=== PATIENT | male | born 1945 | race Hispanic/Latino ===

== ENCOUNTER 2017-12-10 14:44 | Emergency (ER) | payer MEDICARE ==
[2017-12-10 15:21] LABS: #Eosinphils 0.2 thou/uL (0.0-0.7); #Lymphocytes 1.6 thou/uL (1.20-3.40); #Monocytes 0.8 thou/uL (0.11-0.59); #Neutrophils 6.2 thou/uL (1.40-6.50); %Basophils 0.5 % (0.0-1.0); %Eosinophils 1.8 % (0.0-10.0); %Lymphocytes 18.5 % (21.0-51.0); %Neutrophils 70.2 % (42.0-75.0); Hemoglobin 12.2 g/dL (14.0-18.0); Mean Corpuscular HGB CONC 34.7 g/dL (32.0-36.0); Mean Corpuscular Hemoglobin 31.5 pg (27.0-31.0); Mean Corpuscular Volume 90.6 fl (80.0-94.0); Mean Platelet Volume 8.2 fL (7.4-10.4); Platelet Count 178 thou/uL (130-400); RBC Distribution Width 12.4 % (11.5-14.5); Red Blood Cell (RBC) Count 3.89 mill/uL (4.70-6.10); White Blood Cell (WBC) Count 8.8 thou/uL (4.8-10.8)
[2017-12-10 15:52] LABS: ALT (SGPT) 12 U/L (8-55); AST (SGOT) 12 U/L (5-34); Albumin 4.1 g/dL (3.4-4.8); Alkaline Phosphatase 61 U/L (40-150); Anion Gap 16 mmol/L (10-20); BUN (Urea Nitrogen) 40 mg/dL (8.4-25.7); Bilirubin, Total 0.5 mg/dL (0.2-1.2); CK (CPK) 142 U/L (30-200); Calc. Creatinine Clearance 0 mL/min (70-130); Calcium 9.2 mg/dL (7.8-10.44); Carbon Dioxide 19 mmol/L (23-31); Chloride 105 mmol/L (98-107); Estimated GFR-MDRD 40; Globulin 2.9 g/dL (2.4-3.5); Glucose 120 mg/dL (83-110); Lipase 52 U/L (8-78); Potassium 4.2 mmol/L (3.5-5.1); Sodium 136 mmol/L (136-145)
[2017-12-10 15:55] LABS: CKMB 2.7 ng/mL (0-6.6); Troponin I Less than 0.010 ng/mL (< 0.028)
== END 2017-12-10 16:23 | disposition home or self-care (01) ==
LOC: ERS 14:44
DX: R55 Syncope and collapse (principal); R11.2 Nausea with vomiting, unspecified; T50.905A Adverse effect of unspecified drugs, medicaments and biological substances, initial encounter; E11.9 Type 2 diabetes mellitus without complications; E78.00 Pure hypercholesterolemia, unspecified; I25.2 Old myocardial infarction; I11.0 Hypertensive heart disease with heart failure; I50.9 Heart failure, unspecified
CPT/HCPCS: 36415; 80053; 82553; 83690; 84484; 85025; 93005

== ENCOUNTER 2021-07-22 17:21 | Emergency (ER) | payer OTHER, MEDICARE ==
[2021-07-22] MEDS ORDERED: Acetaminophen 500 MG TAB ONE (18:47)
== END 2021-07-22 20:15 | disposition home or self-care (01) ==
LOC: ERS 17:21
DX: S43.014A Anterior dislocation of right humerus, initial encounter (principal); I11.0 Hypertensive heart disease with heart failure; I50.9 Heart failure, unspecified; E78.00 Pure hypercholesterolemia, unspecified; I25.2 Old myocardial infarction; W01.0XXA Fall on same level from slipping, tripping and stumbling without subsequent striking against object, initial encounter
CPT/HCPCS: 23650; 70450

== ENCOUNTER 2021-07-28 10:13 | Observation (INO) | payer MEDICARE ==
[2021-07-28] MEDS ORDERED: Iopamidol-370 76% 500 ML 1 ML ONE (10:30)
[2021-07-28 10:52] LABS: #Basophils 0.1 thou/uL (0.0-0.2); #Eosinphils 0.2 thou/uL (0.0-0.7); #Lymphocytes 1.3 thou/uL (1.20-3.40); %Basophils 0.4 % (0.0-1.0); %Eosinophils 1.1 % (0.0-10.0); %Lymphocytes 8.3 % (21.0-51.0); %Monocytes 6.1 % (0.0-10.0); %Neutrophils 84.1 % (42.0-75.0); Hemoglobin 10.8 g/dL (14.0-18.0); Mean Corpuscular HGB CONC 32.6 g/dL (32.0-36.0); Mean Corpuscular Hemoglobin 27.3 pg (27.0-31.0); Mean Corpuscular Volume 83.7 fL (78.0-98.0); Mean Platelet Volume 7.7 fL (7.4-10.4); Platelet Count 203 thou/uL (130-400); RBC Distribution Width 12.6 % (11.5-14.5); Red Blood Cell (RBC) Count 3.97 mill/uL (4.70-6.10); White Blood Cell (WBC) Count 15.5 thou/uL (4.8-10.8)
[2021-07-28 11:26] LABS: ALT (SGPT) 9 U/L (8-55); AST (SGOT) 15 U/L (5-34); Albumin 2.9 g/dL (3.4-4.8); Alkaline Phosphatase 71 U/L (40-110); Anion Gap 15 mmol/L (10-20); BUN (Urea Nitrogen) 16 mg/dL (8.4-25.7); Bilirubin, Total 0.5 mg/dL (0.2-1.2); Calc. Creatinine Clearance 0 mL/min (70-130); Calcium 11.1 mg/dL (7.8-10.44); Carbon Dioxide 29 mmol/L (23-31); Chloride 94 mmol/L (98-107); Globulin 4.1 g/dL (2.4-3.5); Glucose 113 mg/dL (83-110); Lipase 14 U/L (8-78); Magnesium 1.9 mg/dL (1.6-2.6); Potassium 3.1 mmol/L (3.5-5.1); Sodium 135 mmol/L (136-145)
[2021-07-28 11:41] LABS: CKMB 0.8 ng/mL (0-6.6)
[2021-07-28] MEDS ORDERED: Aspirin Chewable 81 MG TAB ONE (14:08)
[2021-07-28] MEDS ORDERED: Azithromycin 500 MG VIAL ONE (14:08)
[2021-07-28] MEDS ORDERED: Potassium Chloride 20 MEQ TAB ONE (14:08)
[2021-07-28] MEDS ORDERED: Ondansetron ODT 4 MG TAB PO PRN (14:50)
[2021-07-28] MEDS ORDERED: Acetaminophen 650 MG Suppository PR PRN (14:50)
[2021-07-28] MEDS ORDERED: Ondansetron PF 4 MG/2 ML Vial IVP PRN (14:50)
[2021-07-28] MEDS ORDERED: Acetaminophen 325 MG TAB PO PRN (14:50)
[2021-07-28] MEDS ORDERED: Lactated Ringer's 1,000 ML IV SCH (15:15)
[2021-07-28 16:02] LABS: Troponin I 0.033 ng/mL (< 0.028)
[2021-07-28] MEDS ORDERED: Acetaminophen/Codeine 30-300mg Tablet PO PRN (16:38)
[2021-07-28] MEDS ORDERED: cefTRIAXone\\ROCEPHIN 1 GM in Sodium Chloride 0.9% 100 ML IVPB SCH (17:00)
[2021-07-28 17:20] VITALS: BMI 30.1
[2021-07-28 17:37] LABS: SARS-CoV-2 NAA Rapid Test DETECTED (NotDetected)
[2021-07-28 19:00] LABS: Troponin I 0.039 ng/mL (< 0.028)
[2021-07-28] MEDS: Benzonatate 100 MG CAP PO PRN (23:18)
[2021-07-28] MEDS: Acetaminophen 325 MG TAB PO PRN (23:22)
[2021-07-29] MEDS: Benzonatate 100 MG CAP PO PRN (05:22)
[2021-07-29 05:48] LABS: #Eosinphils 0.3 thou/uL (0.0-0.7); #Lymphocytes 1.1 thou/uL (1.20-3.40); #Monocytes 0.8 thou/uL (0.11-0.59); #Neutrophils 9.3 thou/uL (1.40-6.50); %Basophils 0.2 % (0.0-1.0); %Eosinophils 2.7 % (0.0-10.0); %Lymphocytes 9.4 % (21.0-51.0); %Monocytes 6.7 % (0.0-10.0); %Neutrophils 81.1 % (42.0-75.0); Hemoglobin 9.5 g/dL (14.0-18.0); Mean Corpuscular HGB CONC 32.4 g/dL (32.0-36.0); Mean Corpuscular Hemoglobin 27.4 pg (27.0-31.0); Mean Corpuscular Volume 84.6 fL (78.0-98.0); Mean Platelet Volume 7.1 fL (7.4-10.4); Platelet Count 179 thou/uL (130-400); RBC Distribution Width 12.5 % (11.5-14.5); Red Blood Cell (RBC) Count 3.48 mill/uL (4.70-6.10); White Blood Cell (WBC) Count 11.4 thou/uL (4.8-10.8)
[2021-07-29 06:16] LABS: Anion Gap 11 mmol/L (10-20); BUN (Urea Nitrogen) 13 mg/dL (8.4-25.7); Calc. Creatinine Clearance 70 mL/min (70-130); Calcium 10.2 mg/dL (7.8-10.44); Carbon Dioxide 29 mmol/L (23-31); Chloride 100 mmol/L (98-107); Glucose 90 mg/dL (83-110); Sodium 137 mmol/L (136-145)
[2021-07-29 06:19] LABS: Potassium 2.9 mmol/L (3.5-5.1)
[2021-07-29] MEDS ORDERED: Icosapent Ethyl 1 GM CAPSULE PO SCH (08:00)
[2021-07-29] MEDS ORDERED: Carvedilol 25 MG TAB PO SCH (08:00)
[2021-07-29] MEDS: Acetaminophen 325 MG TAB PO PRN (08:50)
[2021-07-29] MEDS ORDERED: Azithromycin 250 MG TAB PO SCH (09:00)
[2021-07-29] MEDS ORDERED: Thiamine 100 MG TAB PO SCH (09:00)
[2021-07-29] MEDS ORDERED: Atorvastatin Calcium 40 MG TAB PO SCH (09:00)
[2021-07-29] MEDS ORDERED: Lisinopril 5 MG TAB PO SCH (09:00)
[2021-07-29] MEDS ORDERED: Aspirin 325 MG TAB PO SCH (09:00)
[2021-07-29] MEDS ORDERED: Potassium Chloride 20 MEQ TAB PO SCH ×2 (10:00→16:00)
[2021-07-29] MEDS ORDERED: Acetaminophen/Codeine 30-300mg Tablet PO SCH (12:00)
[2021-07-29] MEDS ORDERED: HYDROcodone/Acetaminophen 5/325 mg Tablet PO PRN (15:02)
[2021-07-29] MEDS ORDERED: HYDROcodone/Acetaminophen 5/325 mg Tablet PO SCH (15:15)
[2021-07-29 16:03] VITALS: BP 172/84; TEMP 96.2
== END 2021-07-29 17:10 | disposition home or self-care (01) ==
LOC: ERS 10:13 → 2NO 13:46 → INTOOBSV 13:46 → 2SW 22:10
PROVIDERS: ADMIT Student in an Organized Health Care Education/Training Program; ATTEND Student in an Organized Health Care Education/Training Program
PROC: 8E0ZXY6 Isolation (ICD-10-PCS; principal; 2021-07-28)
DX: E87.6 Hypokalemia (principal); U07.1 COVID-19; J12.82 Pneumonia due to coronavirus disease 2019; I13.0 Hypertensive heart and chronic kidney disease with heart failure and stage 1 through stage 4 chronic kidney disease, or unspecified chronic kidney disease; I50.22 Chronic systolic (congestive) heart failure; R04.2 Hemoptysis; K52.1 Toxic gastroenteritis and colitis; E78.00 Pure hypercholesterolemia, unspecified; E86.0 Dehydration; R91.8 Other nonspecific abnormal finding of lung field; E78.5 Hyperlipidemia, unspecified; E83.52 Hypercalcemia; R79.89 Other specified abnormal findings of blood chemistry; R77.8 Other specified abnormalities of plasma proteins; T50.905A Adverse effect of unspecified drugs, medicaments and biological substances, initial encounter; N18.31 Chronic kidney disease, stage 3a; I25.2 Old myocardial infarction; Z95.0 Presence of cardiac pacemaker; Z95.1 Presence of aortocoronary bypass graft; Z79.82 Long term (current) use of aspirin; Z79.899 Other long term (current) drug therapy; Z87.891 Personal history of nicotine dependence; Z82.49 Family history of ischemic heart disease and other diseases of the circulatory system; Z83.3 Family history of diabetes mellitus; I25.5 Ischemic cardiomyopathy
CPT/HCPCS: 71045; 71275; 80048 ×2; 80053; 82553; 83605; 83690; 83735; 84145; 84484 ×2; 85025 ×2; 87040; 87324; 87449; 93005; 96374; 97116; 97139; 97535; 99285; U0002; 36415; J0456; J0696; J3490; J7120; Q9967

== ENCOUNTER 2021-08-04 11:30 | Inpatient (IN) | payer MEDICARE ==
[2021-08-04 12:37] LABS: #Eosinphils 0.1 thou/uL (0.0-0.7); #Lymphocytes 0.7 thou/uL (1.20-3.40); #Monocytes 0.7 thou/uL (0.11-0.59); #Neutrophils 14.5 thou/uL (1.40-6.50); %Eosinophils 0.5 % (0.0-10.0); %Lymphocytes 4.2 % (21.0-51.0); %Monocytes 4.5 % (0.0-10.0); %Neutrophils 90.8 % (42.0-75.0); Hemoglobin 10.4 g/dL (14.0-18.0); Mean Corpuscular Hemoglobin 27.5 pg (27.0-31.0); Mean Corpuscular Volume 83.2 fL (78.0-98.0); Mean Platelet Volume 7.4 fL (7.4-10.4); Platelet Count 200 thou/uL (130-400); RBC Distribution Width 12.7 % (11.5-14.5); Red Blood Cell (RBC) Count 3.77 mill/uL (4.70-6.10); White Blood Cell (WBC) Count 15.9 thou/uL (4.8-10.8)
[2021-08-04 13:00] LABS: ALT (SGPT) 14 U/L (8-55); AST (SGOT) 18 U/L (5-34); Albumin 2.7 g/dL (3.4-4.8); Alkaline Phosphatase 78 U/L (40-110); Anion Gap 12 mmol/L (10-20); BUN (Urea Nitrogen) 24 mg/dL (8.4-25.7); Bilirubin, Total 0.4 mg/dL (0.2-1.2); Calc. Creatinine Clearance 0 mL/min (70-130); Calcium 10.1 mg/dL (7.8-10.44); Carbon Dioxide 30 mmol/L (23-31); Chloride 98 mmol/L (98-107); Globulin 3.9 g/dL (2.4-3.5); Glucose 178 mg/dL (83-110); Potassium 3.3 mmol/L (3.5-5.1); Protein, Total 6.6 g/dL (5.8-8.1); Sodium 137 mmol/L (136-145)
[2021-08-04 13:43] LABS: Bilirubin Negative (Negative); Blood, Urine Negative (Negative); Clarity Clear (Clear); Glucose, Urine (Dipstick) Normal (Negative); Ketone, Urine Negative (Negative); Leukocyte Negative Leu/uL (Negative); Nitrite Negative (Negative); Protein, Urine (Dipstick) 50 mg/dL (Neg-Trace); RBC/HPF 0-3 HPF (0-3); Specific Gravity, Urine 1.021 (1.002-1.036); Squamous Epithelial 0-3 HPF (0-3); Urobilinogen Normal mg/dL (Less than 2); WBC/HPF 0-3 HPF (0-3)
[2021-08-04 13:44] LABS: Bacteria/HPF Rare-Few HPF (None Seen)
[2021-08-04] MEDS ORDERED: Furosemide 40 MG/4 ML VIAL ONE (14:20)
[2021-08-04] MEDS ORDERED: Dexamethasone 4 mg/ml Vial ONE (15:14)
[2021-08-04] MEDS ORDERED: Ondansetron PF 4 MG/2 ML Vial IVP PRN ×2 (15:41→15:45)
[2021-08-04] MEDS ORDERED: Ondansetron ODT 4 MG TAB PO PRN (15:41)
[2021-08-04] MEDS ORDERED: Acetaminophen 325 MG TAB PO PRN (15:45)
[2021-08-04] MEDS ORDERED: Ondansetron ODT 4 MG TAB SL PRN (15:45)
[2021-08-04 16:50] LABS: SARS-CoV-2 NAA Rapid Test DETECTED (NotDetected)
[2021-08-04] MEDS: Icosapent Ethyl 1 GM CAPSULE PO SCH (17:48)
[2021-08-04] MEDS: Carvedilol 6.25 MG TAB PO SCH (21:06)
[2021-08-04] MEDS ORDERED: Benzonatate 100 MG CAP ONE (22:24)
[2021-08-04] MEDS ORDERED: HYDROcodone/Acetaminophen 5/325 mg Tablet ONE (22:24)
[2021-08-04] MEDS: HYDROcodone/Acetaminophen 5/325 mg Tablet PO PRN (22:26)
[2021-08-04] MEDS: Benzonatate 100 MG CAP PO PRN (22:28)
[2021-08-05 06:17] LABS: Anion Gap 11 mmol/L (10-20); BUN (Urea Nitrogen) 21 mg/dL (8.4-25.7); Calc. Creatinine Clearance 93 mL/min (70-130); Carbon Dioxide 32 mmol/L (23-31); Chloride 98 mmol/L (98-107); Glucose 121 mg/dL (83-110); Potassium 3.7 mmol/L (3.5-5.1); Sodium 137 mmol/L (136-145)
[2021-08-05] MEDS ORDERED: Aspirin 325 MG TAB PO SCH (09:00)
[2021-08-05] MEDS ORDERED: Furosemide 40 MG/4 ML VIAL SLOW IVP SCH (09:00)
[2021-08-05] MEDS ORDERED: REMDESIVIR 200 MG in Sodium Chloride 0.9% 250 ML 210 ML IV SCH ×2 (10:00→13:30)
[2021-08-05] MEDS ORDERED: Furosemide 40 MG/4 ML VIAL ONE ×2 (10:53→10:54)
[2021-08-05] MEDS ORDERED: Thiamine 100 MG TAB ONE (10:53)
[2021-08-05] MEDS: Carvedilol 6.25 MG TAB PO SCH ×2 (11:39→21:26)
[2021-08-05] MEDS: Atorvastatin Calcium 40 MG TAB PO SCH (11:39)
[2021-08-05] MEDS: Dexamethasone 4 MG TAB PO SCH (11:39)
[2021-08-05] MEDS: Icosapent Ethyl 1 GM CAPSULE PO SCH ×2 (11:39→16:31)
[2021-08-05] MEDS: Thiamine 100 MG TAB PO SCH (11:41)
[2021-08-05] MEDS: Lisinopril 5 MG TAB PO SCH (11:41)
[2021-08-05] MEDS ORDERED: Enoxaparin Sodium 40 MG/0.4 ML SYRINGE ONE (14:44)
[2021-08-05] MEDS: Enoxaparin Sodium 40 MG/0.4 ML SYRINGE SC SCH ×2 (14:45)
[2021-08-05] MEDS: HYDROcodone/Acetaminophen 5/325 mg Tablet PO PRN (18:24)
[2021-08-06 05:39] LABS: Anion Gap 14 mmol/L (10-20); BUN (Urea Nitrogen) 25 mg/dL (8.4-25.7); Calc. Creatinine Clearance 82 mL/min (70-130); Calcium 9.3 mg/dL (7.8-10.44); Carbon Dioxide 31 mmol/L (23-31); Chloride 94 mmol/L (98-107); Glucose 114 mg/dL (83-110); Potassium 3.4 mmol/L (3.5-5.1); Sodium 136 mmol/L (136-145)
[2021-08-06] MEDS: Icosapent Ethyl 1 GM CAPSULE PO SCH ×2 (09:54→17:48)
[2021-08-06] MEDS: Dexamethasone 4 MG TAB PO SCH (09:55)
[2021-08-06] MEDS: Lisinopril 5 MG TAB PO SCH (09:57)
[2021-08-06] MEDS: Thiamine 100 MG TAB PO SCH (09:58)
[2021-08-06] MEDS: HYDROcodone/Acetaminophen 5/325 mg Tablet PO PRN (09:59)
[2021-08-06] MEDS: Atorvastatin Calcium 40 MG TAB PO SCH (09:59)
[2021-08-06] MEDS: Carvedilol 6.25 MG TAB PO SCH ×2 (10:00→21:49)
[2021-08-06] MEDS: Enoxaparin Sodium 40 MG/0.4 ML SYRINGE SC SCH (10:01)
[2021-08-06] MEDS: HYDROcodone/Acetaminophen 7.5/325 mg Tablet PO PRN ×2 (12:46→17:47)
[2021-08-06] MEDS: REMDESIVIR 100 MG in Sodium Chloride 0.9% 250 ML 230 ML IV SCH (13:25)
[2021-08-06] MEDS ORDERED: Lisinopril 5 MG TAB PO SCH (15:45)
[2021-08-06] MEDS: Benzonatate 100 MG CAP PO PRN (18:32)
[2021-08-07] MEDS: Benzonatate 100 MG CAP PO PRN (02:15)
[2021-08-07] MEDS: HYDROcodone/Acetaminophen 7.5/325 mg Tablet PO PRN ×5 (02:15→20:34)
[2021-08-07 07:01] LABS: ALT (SGPT) 18 U/L (8-55); AST (SGOT) 16 U/L (5-34); Albumin 2.8 g/dL (3.4-4.8); Alkaline Phosphatase 75 U/L (40-110); Anion Gap 13 mmol/L (10-20); BUN (Urea Nitrogen) 28 mg/dL (8.4-25.7); Bilirubin, Total 0.5 mg/dL (0.2-1.2); Calc. Creatinine Clearance 74 mL/min (70-130); Carbon Dioxide 32 mmol/L (23-31); Chloride 95 mmol/L (98-107); Globulin 3.5 g/dL (2.4-3.5); Glucose 108 mg/dL (83-110); Potassium 3.6 mmol/L (3.5-5.1); Protein, Total 6.3 g/dL (5.8-8.1); Sodium 136 mmol/L (136-145)
[2021-08-07] MEDS ORDERED: Lisinopril 10 MG TAB PO SCH ×2 (09:00→21:00)
[2021-08-07] MEDS: Enoxaparin Sodium 40 MG/0.4 ML SYRINGE SC SCH (10:31)
[2021-08-07] MEDS: guaiFENesin/Codeine 200 mg/20 mg 10 ml Cup PO PRN (10:31)
[2021-08-07] MEDS: Atorvastatin Calcium 40 MG TAB PO SCH (10:32)
[2021-08-07] MEDS: Carvedilol 6.25 MG TAB PO SCH ×2 (10:33→20:34)
[2021-08-07] MEDS: REMDESIVIR 100 MG in Sodium Chloride 0.9% 250 ML 230 ML IV SCH (10:35)
[2021-08-07] MEDS: Thiamine 100 MG TAB PO SCH (10:46)
[2021-08-07] MEDS: Icosapent Ethyl 1 GM CAPSULE PO SCH ×2 (10:46→18:06)
[2021-08-07] MEDS: Dexamethasone 4 MG TAB PO SCH (10:47)
[2021-08-07] MEDS: hydrALAZINE 10 MG TAB PO SCH ×2 (16:08→20:34)
[2021-08-07] MEDS: Benzonatate 100 MG CAP PO SCH ×2 (16:08→20:35)
[2021-08-07] MEDS ORDERED: Losartan 25 MG TAB PO SCH (21:00)
[2021-08-07] MEDS ORDERED: hydrALAZINE 10 MG TAB PO SCH (21:45)
[2021-08-08] MEDS: HYDROcodone/Acetaminophen 7.5/325 mg Tablet PO PRN ×5 (02:53→22:25)
[2021-08-08] MEDS ORDERED: hydrALAZINE 10 MG TAB PO SCH ×2 (03:30→09:00)
[2021-08-08] MEDS: Ibuprofen 800 MG TAB PO PRN (05:53)
[2021-08-08 06:39] LABS: ALT (SGPT) 17 U/L (8-55); AST (SGOT) 15 U/L (5-34); Albumin 2.9 g/dL (3.4-4.8); Alkaline Phosphatase 73 U/L (40-110); Anion Gap 16 mmol/L (10-20); BUN (Urea Nitrogen) 29 mg/dL (8.4-25.7); Bilirubin, Total 0.6 mg/dL (0.2-1.2); Calc. Creatinine Clearance 79 mL/min (70-130); Calcium 9.1 mg/dL (7.8-10.44); Carbon Dioxide 28 mmol/L (23-31); Chloride 96 mmol/L (98-107); Globulin 3.6 g/dL (2.4-3.5); Glucose 100 mg/dL (83-110); Potassium 3.7 mmol/L (3.5-5.1); Protein, Total 6.5 g/dL (5.8-8.1); Sodium 136 mmol/L (136-145)
[2021-08-08] MEDS: Icosapent Ethyl 1 GM CAPSULE PO SCH ×2 (07:37→18:27)
[2021-08-08] MEDS: Dexamethasone 4 MG TAB PO SCH (07:37)
[2021-08-08] MEDS: Thiamine 100 MG TAB PO SCH (07:38)
[2021-08-08] MEDS: Atorvastatin Calcium 40 MG TAB PO SCH (07:40)
[2021-08-08] MEDS: Carvedilol 6.25 MG TAB PO SCH ×2 (07:41→20:38)
[2021-08-08] MEDS: Losartan 25 MG TAB PO SCH (07:41)
[2021-08-08] MEDS: Benzonatate 100 MG CAP PO SCH ×3 (07:42→20:39)
[2021-08-08] MEDS: Enoxaparin Sodium 40 MG/0.4 ML SYRINGE SC SCH (07:42)
[2021-08-08] MEDS ORDERED: Lisinopril 10 MG TAB PO SCH (09:00)
[2021-08-08] MEDS: REMDESIVIR 100 MG in Sodium Chloride 0.9% 250 ML 230 ML IV SCH (11:40)
[2021-08-08] MEDS: hydrALAZINE 25 MG TAB PO SCH ×2 (16:11→22:25)
[2021-08-09] MEDS: Ibuprofen 800 MG TAB PO PRN ×2 (02:04→23:28)
[2021-08-09] MEDS: HYDROcodone/Acetaminophen 7.5/325 mg Tablet PO PRN (05:11)
[2021-08-09] MEDS: hydrALAZINE 25 MG TAB PO SCH ×2 (05:12→16:03)
[2021-08-09 07:00] LABS: INR-International Normal Ratio 1.1; PTT 32.7 sec (22.9-36.1); Prothrombin Time 14.7 sec (12.0-14.7)
[2021-08-09 07:13] LABS: ALT (SGPT) 17 U/L (8-55); AST (SGOT) 16 U/L (5-34); Albumin 2.8 g/dL (3.4-4.8); Alkaline Phosphatase 71 U/L (40-110); Anion Gap 12 mmol/L (10-20); BUN (Urea Nitrogen) 33 mg/dL (8.4-25.7); Bilirubin, Total 0.6 mg/dL (0.2-1.2); Calc. Creatinine Clearance 78 mL/min (70-130); Calcium 9.2 mg/dL (7.8-10.44); Carbon Dioxide 31 mmol/L (23-31); Chloride 98 mmol/L (98-107); Globulin 3.5 g/dL (2.4-3.5); Glucose 95 mg/dL (83-110); Potassium 3.8 mmol/L (3.5-5.1); Protein, Total 6.3 g/dL (5.8-8.1); Sodium 137 mmol/L (136-145)
[2021-08-09] MEDS: Carvedilol 6.25 MG TAB PO SCH (08:24)
[2021-08-09] MEDS: Icosapent Ethyl 1 GM CAPSULE PO SCH ×2 (08:24→16:02)
[2021-08-09] MEDS: Losartan 25 MG TAB PO SCH (08:24)
[2021-08-09] MEDS: Benzonatate 100 MG CAP PO SCH ×3 (08:25→23:29)
[2021-08-09] MEDS: Atorvastatin Calcium 40 MG TAB PO SCH (08:25)
[2021-08-09] MEDS: Thiamine 100 MG TAB PO SCH (08:25)
[2021-08-09] MEDS: Dexamethasone 4 MG TAB PO SCH (08:26)
[2021-08-09] MEDS: REMDESIVIR 100 MG in Sodium Chloride 0.9% 250 ML 230 ML IV SCH (11:13)
[2021-08-09] MEDS: guaiFENesin/Codeine 200 mg/20 mg 10 ml Cup PO PRN ×2 (11:13→23:28)
[2021-08-09] MEDS ORDERED: Midazolam HCl 2 mg/2 ml Vial ONE (13:03)
[2021-08-09] MEDS ORDERED: Sodium Bicarbonate 2.5 MEQ/5 ML VIAL ONE (13:03)
[2021-08-09] MEDS ORDERED: Fentanyl 100 MCG/2 ML VIAL ONE (13:03)
[2021-08-09] MEDS ORDERED: Lactated Ringer's 250 ML IV SCH ×2 (21:15→21:30)
[2021-08-09 21:59] LABS: Troponin I 0.058 ng/mL (< 0.028)
[2021-08-10] MEDS: Carvedilol 6.25 MG TAB PO SCH ×3 (00:05→21:43)
[2021-08-10] MEDS: hydrALAZINE 25 MG TAB PO SCH ×4 (00:08→21:46)
[2021-08-10 06:49] LABS: ALT (SGPT) 17 U/L (8-55); AST (SGOT) 15 U/L (5-34); Albumin 2.8 g/dL (3.4-4.8); Alkaline Phosphatase 73 U/L (40-110); Anion Gap 14 mmol/L (10-20); BUN (Urea Nitrogen) 35 mg/dL (8.4-25.7); Bilirubin, Total 0.6 mg/dL (0.2-1.2); Calc. Creatinine Clearance 68 mL/min (70-130); Calcium 9.2 mg/dL (7.8-10.44); Carbon Dioxide 29 mmol/L (23-31); Chloride 100 mmol/L (98-107); Globulin 3.3 g/dL (2.4-3.5); Glucose 93 mg/dL (83-110); Protein, Total 6.1 g/dL (5.8-8.1); Sodium 139 mmol/L (136-145)
[2021-08-10] MEDS: Thiamine 100 MG TAB PO SCH (08:37)
[2021-08-10] MEDS: Icosapent Ethyl 1 GM CAPSULE PO SCH ×2 (08:37→16:22)
[2021-08-10] MEDS: Atorvastatin Calcium 40 MG TAB PO SCH (08:37)
[2021-08-10] MEDS: Benzonatate 100 MG CAP PO SCH ×3 (08:39→21:43)
[2021-08-10] MEDS: Losartan 25 MG TAB PO SCH (08:39)
[2021-08-10] MEDS: Dexamethasone 4 MG TAB PO SCH (08:39)
[2021-08-10] MEDS: Ibuprofen 800 MG TAB PO PRN (09:03)
[2021-08-10] MEDS: Aspirin 325 MG TAB PO SCH (09:03)
[2021-08-10 11:24] LABS: Hemoglobin 11.3 g/dL (14.0-18.0); Mean Corpuscular Hemoglobin 27.2 pg (27.0-31.0); Mean Corpuscular Volume 85.1 fL (78.0-98.0); Mean Platelet Volume 7.7 fL (7.4-10.4); Platelet Count 263 thou/uL (130-400); RBC Distribution Width 13.8 % (11.5-14.5); Red Blood Cell (RBC) Count 4.15 mill/uL (4.70-6.10); White Blood Cell (WBC) Count 20.5 thou/uL (4.8-10.8)
[2021-08-10 11:47] LABS: Band 4 % (5-11); Eosinophils 1 % (0-10); Lymphocytes 8 % (21-51); MDiff Complete? YES; Monocytes 6 % (0-10); Neutrophil 81 % (42-75); RBC Morphology Normal
[2021-08-10 15:35] LABS: Actual Bicarbonate (HCO3a) 27.3 mEq/L (22-28); Base Excess (BEa) 3.3 mEq/L (-2.0 to +3.0); CO2 Tension 39.3 mmHg (35.0-45.0); Calcium, Ionized (arterial) 1.17 mmol/L (1.12-1.30); Carboxyhemoglobin (COHb) 0.3 gm% (0.0-3.0); Hemoglobin (Hb) 12.2 g/dL (14.0-18.0); O2 Tension (PaO2), arterial 80.1 mmHg (> 70.0); Potassium - ABG Lab 3.98 mmol/L (3.70-5.30); pH, Arterial 7.46 (7.35-7.45)
[2021-08-10 15:36] LABS: ALV-art Gradient 155.975 mmHg (0-20); Puncture Site RBA
[2021-08-10] MEDS ORDERED: Enoxaparin Sodium 40 MG/0.4 ML SYRINGE SC SCH (21:00)
[2021-08-11] MEDS: hydrALAZINE 25 MG TAB PO SCH ×3 (05:19→21:59)
[2021-08-11 06:10] LABS: ALT (SGPT) 16 U/L (8-55); AST (SGOT) 13 U/L (5-34); Albumin 2.7 g/dL (3.4-4.8); Alkaline Phosphatase 68 U/L (40-110); Anion Gap 13 mmol/L (10-20); BUN (Urea Nitrogen) 37 mg/dL (8.4-25.7); Bilirubin, Total 0.6 mg/dL (0.2-1.2); Calc. Creatinine Clearance 77 mL/min (70-130); Carbon Dioxide 29 mmol/L (23-31); Chloride 101 mmol/L (98-107); Globulin 3.2 g/dL (2.4-3.5); Glucose 111 mg/dL (83-110); Protein, Total 5.9 g/dL (5.8-8.1); Sodium 139 mmol/L (136-145)
[2021-08-11] MEDS ORDERED: Apixaban 2.5 MG TAB PO SCH ×3 (09:45→21:00)
[2021-08-11] MEDS: Losartan 25 MG TAB PO SCH (10:52)
[2021-08-11] MEDS: Aspirin 325 MG TAB PO SCH (10:52)
[2021-08-11] MEDS: Atorvastatin Calcium 40 MG TAB PO SCH (10:53)
[2021-08-11] MEDS: Icosapent Ethyl 1 GM CAPSULE PO SCH ×2 (10:53→17:16)
[2021-08-11] MEDS: Thiamine 100 MG TAB PO SCH (10:54)
[2021-08-11] MEDS: Dexamethasone 4 mg/ml Vial SLOW IVP SCH (10:55)
[2021-08-11] MEDS: Benzonatate 100 MG CAP PO SCH ×3 (10:56→21:23)
[2021-08-11] MEDS: Carvedilol 6.25 MG TAB PO SCH ×2 (10:56→21:23)
[2021-08-11] MEDS: Ibuprofen 800 MG TAB PO PRN ×2 (10:57→21:58)
[2021-08-11] MEDS: Enoxaparin Sodium 40 MG/0.4 ML SYRINGE SC SCH (21:23)
[2021-08-12] MEDS: hydrALAZINE 25 MG TAB PO SCH ×3 (05:53→22:00)
[2021-08-12 06:11] LABS: ALT (SGPT) 15 U/L (8-55); AST (SGOT) 13 U/L (5-34); Albumin 2.8 g/dL (3.4-4.8); Alkaline Phosphatase 68 U/L (40-110); Anion Gap 11 mmol/L (10-20); BUN (Urea Nitrogen) 34 mg/dL (8.4-25.7); Bilirubin, Total 0.8 mg/dL (0.2-1.2); Calc. Creatinine Clearance 73 mL/min (70-130); Carbon Dioxide 30 mmol/L (23-31); Chloride 101 mmol/L (98-107); Globulin 3.3 g/dL (2.4-3.5); Glucose 110 mg/dL (83-110); Potassium 4.3 mmol/L (3.5-5.1); Protein, Total 6.1 g/dL (5.8-8.1); Sodium 138 mmol/L (136-145)
[2021-08-12] MEDS: Ibuprofen 800 MG TAB PO PRN (06:44)
[2021-08-12] MEDS: Icosapent Ethyl 1 GM CAPSULE PO SCH ×2 (09:11→17:21)
[2021-08-12] MEDS: Aspirin 325 MG TAB PO SCH (09:11)
[2021-08-12] MEDS: Losartan 25 MG TAB PO SCH (09:11)
[2021-08-12] MEDS: Carvedilol 6.25 MG TAB PO SCH ×2 (09:12→19:52)
[2021-08-12] MEDS: Thiamine 100 MG TAB PO SCH (09:12)
[2021-08-12] MEDS: Benzonatate 100 MG CAP PO SCH ×3 (09:12→19:52)
[2021-08-12] MEDS: Atorvastatin Calcium 40 MG TAB PO SCH (09:12)
[2021-08-12] MEDS: Dexamethasone 4 mg/ml Vial SLOW IVP SCH (09:13)
[2021-08-12 11:04] LABS: #Lymphocytes 0.9 thou/uL (1.20-3.40); #Monocytes 0.9 thou/uL (0.11-0.59); #Neutrophils 18.1 thou/uL (1.40-6.50); %Eosinophils 0.2 % (0.0-10.0); %Lymphocytes 4.4 % (21.0-51.0); %Monocytes 4.5 % (0.0-10.0); %Neutrophils 90.9 % (42.0-75.0); Mean Corpuscular HGB CONC 30.7 g/dL (32.0-36.0); Mean Corpuscular Hemoglobin 26.1 pg (27.0-31.0); Mean Corpuscular Volume 85.2 fL (78.0-98.0); Platelet Count 246 thou/uL (130-400); RBC Distribution Width 14.3 % (11.5-14.5); Red Blood Cell (RBC) Count 4.21 mill/uL (4.70-6.10); White Blood Cell (WBC) Count 19.9 thou/uL (4.8-10.8)
[2021-08-12] MEDS: Enoxaparin Sodium 40 MG/0.4 ML SYRINGE SC SCH (19:52)
[2021-08-13] MEDS: HYDROcodone/Acetaminophen 7.5/325 mg Tablet PO PRN ×2 (02:09→08:56)
[2021-08-13 05:04] LABS: ALT (SGPT) 14 U/L (8-55); AST (SGOT) 14 U/L (5-34); Albumin 2.8 g/dL (3.4-4.8); Alkaline Phosphatase 70 U/L (40-110); Anion Gap 14 mmol/L (10-20); BUN (Urea Nitrogen) 36 mg/dL (8.4-25.7); Bilirubin, Total 0.8 mg/dL (0.2-1.2); Calc. Creatinine Clearance 72 mL/min (70-130); Calcium 9.1 mg/dL (7.8-10.44); Carbon Dioxide 26 mmol/L (23-31); Chloride 101 mmol/L (98-107); Globulin 3.3 g/dL (2.4-3.5); Glucose 117 mg/dL (83-110); Potassium 4.6 mmol/L (3.5-5.1); Protein, Total 6.1 g/dL (5.8-8.1); Sodium 136 mmol/L (136-145)
[2021-08-13] MEDS: hydrALAZINE 25 MG TAB PO SCH ×2 (05:07→13:42)
[2021-08-13] MEDS: Icosapent Ethyl 1 GM CAPSULE PO SCH ×2 (08:45→17:14)
[2021-08-13] MEDS: Dexamethasone 4 mg/ml Vial SLOW IVP SCH (08:45)
[2021-08-13] MEDS: Benzonatate 100 MG CAP PO SCH ×3 (08:45→21:40)
[2021-08-13] MEDS: Carvedilol 6.25 MG TAB PO SCH ×2 (08:46→21:40)
[2021-08-13] MEDS: Thiamine 100 MG TAB PO SCH (08:46)
[2021-08-13] MEDS: Aspirin 325 MG TAB PO SCH (08:46)
[2021-08-13] MEDS: Losartan 25 MG TAB PO SCH (08:46)
[2021-08-13] MEDS: Atorvastatin Calcium 40 MG TAB PO SCH (08:46)
[2021-08-13] MEDS ORDERED: Lactated Ringer's 500 ML IV SCH (12:00)
[2021-08-13] MEDS: Enoxaparin Sodium 40 MG/0.4 ML SYRINGE SC SCH (21:40)
[2021-08-14] MEDS: HYDROcodone/Acetaminophen 7.5/325 mg Tablet PO PRN ×2 (01:29→14:05)
[2021-08-14 05:27] LABS: ALT (SGPT) 15 U/L (8-55); AST (SGOT) 16 U/L (5-34); Albumin 2.6 g/dL (3.4-4.8); Alkaline Phosphatase 68 U/L (40-110); Anion Gap 17 mmol/L (10-20); BUN (Urea Nitrogen) 39 mg/dL (8.4-25.7); Bilirubin, Total 0.9 mg/dL (0.2-1.2); Calc. Creatinine Clearance 65 mL/min (70-130); Calcium 9.8 mg/dL (7.8-10.44); Carbon Dioxide 22 mmol/L (23-31); Chloride 102 mmol/L (98-107); Globulin 3.3 g/dL (2.4-3.5); Glucose 127 mg/dL (83-110); Potassium 4.6 mmol/L (3.5-5.1); Protein, Total 5.9 g/dL (5.8-8.1); Sodium 136 mmol/L (136-145)
[2021-08-14] MEDS: Icosapent Ethyl 1 GM CAPSULE PO SCH ×2 (08:15→16:04)
[2021-08-14] MEDS: Aspirin 325 MG TAB PO SCH (08:16)
[2021-08-14] MEDS: Atorvastatin Calcium 40 MG TAB PO SCH (08:16)
[2021-08-14] MEDS: Thiamine 100 MG TAB PO SCH (08:16)
[2021-08-14] MEDS: Dexamethasone 4 mg/ml Vial SLOW IVP SCH (08:16)
[2021-08-14] MEDS: Carvedilol 6.25 MG TAB PO SCH (08:17)
[2021-08-14] MEDS: Benzonatate 100 MG CAP PO SCH ×3 (08:17→21:56)
[2021-08-14] MEDS ORDERED: Iopamidol-370 76% 500 ML 1 ML ONE (12:25)
[2021-08-14] MEDS: Enoxaparin Sodium 40 MG/0.4 ML SYRINGE SC SCH (21:29)
[2021-08-15 05:18] LABS: ALT (SGPT) 17 U/L (8-55); AST (SGOT) 17 U/L (5-34); Albumin 2.8 g/dL (3.4-4.8); Alkaline Phosphatase 65 U/L (40-110); Anion Gap 15 mmol/L (10-20); BUN (Urea Nitrogen) 35 mg/dL (8.4-25.7); Bilirubin, Total 0.8 mg/dL (0.2-1.2); Calc. Creatinine Clearance 79 mL/min (70-130); Calcium 10.2 mg/dL (7.8-10.44); Carbon Dioxide 25 mmol/L (23-31); Chloride 101 mmol/L (98-107); Globulin 3.6 g/dL (2.4-3.5); Glucose 96 mg/dL (83-110); Potassium 4.7 mmol/L (3.5-5.1); Protein, Total 6.4 g/dL (5.8-8.1); Sodium 136 mmol/L (136-145)
[2021-08-15] MEDS: HYDROcodone/Acetaminophen 7.5/325 mg Tablet PO PRN (08:43)
[2021-08-15] MEDS: Icosapent Ethyl 1 GM CAPSULE PO SCH ×2 (08:45→17:03)
[2021-08-15] MEDS: Dexamethasone 4 mg/ml Vial SLOW IVP SCH (08:45)
[2021-08-15] MEDS: Aspirin 325 MG TAB PO SCH (08:45)
[2021-08-15] MEDS: Atorvastatin Calcium 40 MG TAB PO SCH (08:45)
[2021-08-15] MEDS: Benzonatate 100 MG CAP PO SCH ×4 (08:45→21:08)
[2021-08-15] MEDS: Thiamine 100 MG TAB PO SCH (08:45)
[2021-08-15] MEDS: HYDROcodone/Acetaminophen 10/325 mg Tablet PO PRN (11:30)
[2021-08-15] MEDS: Ibuprofen 800 MG TAB PO PRN (13:44)
[2021-08-15] MEDS: Enoxaparin Sodium 40 MG/0.4 ML SYRINGE SC SCH (20:53)
[2021-08-16 05:58] LABS: ALT (SGPT) 18 U/L (8-55); AST (SGOT) 15 U/L (5-34); Alkaline Phosphatase 66 U/L (40-110); Anion Gap 14 mmol/L (10-20); BUN (Urea Nitrogen) 37 mg/dL (8.4-25.7); Bilirubin, Total 0.7 mg/dL (0.2-1.2); Calc. Creatinine Clearance 72 mL/min (70-130); Calcium 10.3 mg/dL (7.8-10.44); Carbon Dioxide 26 mmol/L (23-31); Chloride 101 mmol/L (98-107); Globulin 3.6 g/dL (2.4-3.5); Glucose 88 mg/dL (83-110); Potassium 5.1 mmol/L (3.5-5.1); Protein, Total 6.6 g/dL (5.8-8.1); Sodium 136 mmol/L (136-145)
[2021-08-16] MEDS: HYDROcodone/Acetaminophen 10/325 mg Tablet PO PRN ×2 (08:34→13:35)
[2021-08-16] MEDS: Dexamethasone 4 mg/ml Vial SLOW IVP SCH (10:01)
[2021-08-16] MEDS: Icosapent Ethyl 1 GM CAPSULE PO SCH ×2 (10:02→16:49)
[2021-08-16] MEDS: Aspirin 325 MG TAB PO SCH (10:02)
[2021-08-16] MEDS: Thiamine 100 MG TAB PO SCH (10:02)
[2021-08-16] MEDS: Benzonatate 100 MG CAP PO SCH ×3 (10:04→20:55)
[2021-08-16] MEDS: Atorvastatin Calcium 40 MG TAB PO SCH ×2 (14:12→20:55)
[2021-08-16] MEDS: HYDROcodone/Acetaminophen 10/325 mg Tablet PO SCH ×2 (16:50→20:55)
[2021-08-16] MEDS: Enoxaparin Sodium 40 MG/0.4 ML SYRINGE SC SCH (20:55)
[2021-08-17] MEDS: HYDROcodone/Acetaminophen 10/325 mg Tablet PO SCH ×5 (02:35→22:03)
[2021-08-17 05:35] LABS: ALT (SGPT) 17 U/L (8-55); AST (SGOT) 12 U/L (5-34); Albumin 2.8 g/dL (3.4-4.8); Alkaline Phosphatase 66 U/L (40-110); Anion Gap 12 mmol/L (10-20); BUN (Urea Nitrogen) 35 mg/dL (8.4-25.7); Bilirubin, Total 0.5 mg/dL (0.2-1.2); Calc. Creatinine Clearance 73 mL/min (70-130); Carbon Dioxide 28 mmol/L (23-31); Chloride 100 mmol/L (98-107); Globulin 3.7 g/dL (2.4-3.5); Glucose 126 mg/dL (83-110); Potassium 5.1 mmol/L (3.5-5.1); Protein, Total 6.5 g/dL (5.8-8.1); Sodium 135 mmol/L (136-145)
[2021-08-17] MEDS: Aspirin 325 MG TAB PO SCH (09:35)
[2021-08-17] MEDS: Icosapent Ethyl 1 GM CAPSULE PO SCH (09:36)
[2021-08-17] MEDS: Benzonatate 100 MG CAP PO SCH ×3 (09:36→22:03)
[2021-08-17] MEDS: Thiamine 100 MG TAB PO SCH (11:02)
[2021-08-17] MEDS: Dexamethasone 4 mg/ml Vial SLOW IVP SCH (11:03)
[2021-08-17 14:51] VITALS: BMI 28.0
[2021-08-17] MEDS: Atorvastatin Calcium 40 MG TAB PO SCH (22:03)
[2021-08-17] MEDS: Enoxaparin Sodium 40 MG/0.4 ML SYRINGE SC SCH (22:04)
[2021-08-18] MEDS: HYDROcodone/Acetaminophen 10/325 mg Tablet PO SCH ×7 (00:57→19:28)
[2021-08-18] MEDS: Icosapent Ethyl 1 GM CAPSULE PO SCH ×3 (04:02→17:27)
[2021-08-18] MEDS: guaiFENesin/Codeine 200 mg/20 mg 10 ml Cup PO PRN ×2 (05:24→17:27)
[2021-08-18 05:37] LABS: ALT (SGPT) 19 U/L (8-55); AST (SGOT) 16 U/L (5-34); Albumin 2.8 g/dL (3.4-4.8); Alkaline Phosphatase 66 U/L (40-110); Anion Gap 16 mmol/L (10-20); BUN (Urea Nitrogen) 29 mg/dL (8.4-25.7); Bilirubin, Total 0.8 mg/dL (0.2-1.2); Calc. Creatinine Clearance 79 mL/min (70-130); Calcium 10.3 mg/dL (7.8-10.44); Carbon Dioxide 24 mmol/L (23-31); Chloride 98 mmol/L (98-107); Globulin 3.8 g/dL (2.4-3.5); Glucose 74 mg/dL (83-110); Potassium 5.4 mmol/L (3.5-5.1); Protein, Total 6.6 g/dL (5.8-8.1); Sodium 133 mmol/L (136-145)
[2021-08-18] MEDS: Thiamine 100 MG TAB PO SCH (08:59)
[2021-08-18] MEDS: Aspirin 325 MG TAB PO SCH ×2 (08:59→09:00)
[2021-08-18] MEDS: Dexamethasone 4 mg/ml Vial SLOW IVP SCH (09:00)
[2021-08-18] MEDS: Benzonatate 100 MG CAP PO SCH ×3 (09:00→20:29)
[2021-08-18] MEDS ORDERED: Magnevist 469MG/ML 20 ML VIAL ONE (12:28)
[2021-08-18] MEDS: Atorvastatin Calcium 40 MG TAB PO SCH (20:29)
[2021-08-18] MEDS: Enoxaparin Sodium 40 MG/0.4 ML SYRINGE SC SCH (20:30)
[2021-08-18] MEDS ORDERED: Morphine 4 MG/ML VIAL SLOW IVP SCH (22:45)
[2021-08-19] MEDS: HYDROcodone/Acetaminophen 10/325 mg Tablet PO SCH ×6 (00:06→20:01)
[2021-08-19] MEDS: guaiFENesin/Codeine 200 mg/20 mg 10 ml Cup PO PRN (04:05)
[2021-08-19 05:53] LABS: ALT (SGPT) 20 U/L (8-55); AST (SGOT) 17 U/L (5-34); Albumin 2.9 g/dL (3.4-4.8); Alkaline Phosphatase 72 U/L (40-110); Anion Gap 12 mmol/L (10-20); BUN (Urea Nitrogen) 33 mg/dL (8.4-25.7); Bilirubin, Total 0.6 mg/dL (0.2-1.2); Calc. Creatinine Clearance 75 mL/min (70-130); Calcium 10.5 mg/dL (7.8-10.44); Carbon Dioxide 28 mmol/L (23-31); Chloride 97 mmol/L (98-107); Globulin 3.6 g/dL (2.4-3.5); Glucose 93 mg/dL (83-110); Protein, Total 6.5 g/dL (5.8-8.1); Sodium 132 mmol/L (136-145)
[2021-08-19] MEDS: Dexamethasone 4 mg/ml Vial SLOW IVP SCH (08:52)
[2021-08-19] MEDS: Benzonatate 100 MG CAP PO SCH ×3 (08:52→20:01)
[2021-08-19] MEDS: Icosapent Ethyl 1 GM CAPSULE PO SCH ×2 (08:52→16:21)
[2021-08-19] MEDS: Thiamine 100 MG TAB PO SCH (08:52)
[2021-08-19 08:56] LABS: Hemoglobin 10.7 g/dL (14.0-18.0); Mean Corpuscular HGB CONC 31.6 g/dL (32.0-36.0); Mean Corpuscular Hemoglobin 26.8 pg (27.0-31.0); Mean Corpuscular Volume 84.7 fL (78.0-98.0); Mean Platelet Volume 8.6 fL (7.4-10.4); Platelet Count 189 thou/uL (130-400); RBC Distribution Width 14.8 % (11.5-14.5); Red Blood Cell (RBC) Count 3.99 mill/uL (4.70-6.10); White Blood Cell (WBC) Count 21.9 thou/uL (4.8-10.8)
[2021-08-19 09:46] LABS: Band 6 % (5-11); Eosinophils 1 % (0-10); Lymphocytes 7 % (21-51); MDiff Complete? YES; Monocytes 7 % (0-10); Neutrophil 77 % (42-75); Platelet Morphology Comment Appears Adequate; Polychromasia SLIGHT = 2-3 cells (100X) (0-2/hpf); Reactive Lymphocytes 2 % (0-10)
[2021-08-19] MEDS: Enoxaparin Sodium 40 MG/0.4 ML SYRINGE SC SCH (20:01)
[2021-08-19] MEDS: Atorvastatin Calcium 40 MG TAB PO SCH (20:01)
[2021-08-19] MEDS: Ibuprofen 800 MG TAB PO PRN (20:04)
[2021-08-20] MEDS: HYDROcodone/Acetaminophen 10/325 mg Tablet PO SCH ×6 (04:38→20:46)
[2021-08-20] MEDS: Ibuprofen 800 MG TAB PO PRN (04:38)
[2021-08-20 08:41] LABS: ALT (SGPT) 21 U/L (8-55); AST (SGOT) 15 U/L (5-34); Albumin 2.9 g/dL (3.4-4.8); Alkaline Phosphatase 73 U/L (40-110); Anion Gap 16 mmol/L (10-20); BUN (Urea Nitrogen) 42 mg/dL (8.4-25.7); Bilirubin, Total 0.5 mg/dL (0.2-1.2); Calc. Creatinine Clearance 54 mL/min (70-130); Calcium 10.5 mg/dL (7.8-10.44); Carbon Dioxide 25 mmol/L (23-31); Chloride 95 mmol/L (98-107); Globulin 3.7 g/dL (2.4-3.5); Glucose 197 mg/dL (83-110); Potassium 4.4 mmol/L (3.5-5.1); Protein, Total 6.6 g/dL (5.8-8.1); Sodium 132 mmol/L (136-145)
[2021-08-20] MEDS: Benzonatate 100 MG CAP PO SCH ×3 (08:41→20:47)
[2021-08-20] MEDS: Icosapent Ethyl 1 GM CAPSULE PO SCH ×2 (08:41→17:50)
[2021-08-20] MEDS: Thiamine 100 MG TAB PO SCH (08:41)
[2021-08-20] MEDS: Aspirin 325 MG TAB PO SCH (08:41)
[2021-08-20] MEDS: Dexamethasone 4 mg/ml Vial SLOW IVP SCH (08:42)
[2021-08-20] MEDS ORDERED: Lactated Ringer's 1,000 ML IV SCH (10:30)
[2021-08-20] MEDS: guaiFENesin/Codeine 200 mg/20 mg 10 ml Cup PO PRN (17:46)
[2021-08-20] MEDS: Atorvastatin Calcium 40 MG TAB PO SCH (20:46)
[2021-08-20] MEDS: Enoxaparin Sodium 40 MG/0.4 ML SYRINGE SC SCH (20:46)
[2021-08-21] MEDS: HYDROcodone/Acetaminophen 10/325 mg Tablet PO SCH ×6 (00:26→20:58)
[2021-08-21] MEDS: Icosapent Ethyl 1 GM CAPSULE PO SCH (08:37)
[2021-08-21] MEDS: Aspirin 325 MG TAB PO SCH (08:37)
[2021-08-21] MEDS: Benzonatate 100 MG CAP PO SCH ×3 (08:38→20:58)
[2021-08-21] MEDS: Thiamine 100 MG TAB PO SCH (08:38)
[2021-08-21] MEDS: Dexamethasone 4 mg/ml Vial SLOW IVP SCH (08:38)
[2021-08-22] MEDS: HYDROcodone/Acetaminophen 10/325 mg Tablet PO SCH ×4 (00:12→13:01)
[2021-08-22] MEDS: guaiFENesin/Codeine 200 mg/20 mg 10 ml Cup PO PRN (01:28)
[2021-08-22] MEDS ORDERED: Morphine 4 MG/ML VIAL SLOW IVP SCH (03:00)
[2021-08-22] MEDS: Dexamethasone 4 mg/ml Vial SLOW IVP SCH (09:36)
[2021-08-22] MEDS: Benzonatate 100 MG CAP PO SCH (09:36)
[2021-08-22 12:39] VITALS: BP 104/63; TEMP 98.6
== END 2021-08-22 15:15 | disposition hospice, home (50) | DRG 177 ==
LOC: ERS 11:30 → ERHOLD 15:21 → 2SE 08-05 15:44 → 2SW 08-06 00:55 → 2NO 08-11 16:16 → SURG B 08-18 00:48
PROVIDERS: ADMIT Family Medicine; ATTEND Family Medicine
PROC: 8E0ZXY6 Isolation (ICD-10-PCS; principal; 2021-08-04)
PROC: XW033E5 Introduction of Remdesivir Anti-infective into Peripheral Vein, Percutaneous Approach, New Technology Group 5 (ICD-10-PCS; 2021-08-05)
PROC: 0BBG3ZX Excision of Left Upper Lung Lobe, Percutaneous Approach, Diagnostic (ICD-10-PCS; 2021-08-10)
DX: U07.1 COVID-19 (principal); J12.82 Pneumonia due to coronavirus disease 2019; J96.01 Acute respiratory failure with hypoxia; I50.23 Acute on chronic systolic (congestive) heart failure; C34.12 Malignant neoplasm of upper lobe, left bronchus or lung; C79.51 Secondary malignant neoplasm of bone; C79.31 Secondary malignant neoplasm of brain; G82.20 Paraplegia, unspecified; G95.29 Other cord compression; I13.0 Hypertensive heart and chronic kidney disease with heart failure and stage 1 through stage 4 chronic kidney disease, or unspecified chronic kidney disease; I47.2 Ventricular tachycardia; Z66 Do not resuscitate; Z51.5 Encounter for palliative care; E78.00 Pure hypercholesterolemia, unspecified; E78.5 Hyperlipidemia, unspecified; R94.31 Abnormal electrocardiogram [ECG] [EKG]; N18.31 Chronic kidney disease, stage 3a; I25.2 Old myocardial infarction; Z95.1 Presence of aortocoronary bypass graft; Z95.810 Presence of automatic (implantable) cardiac defibrillator; Z79.82 Long term (current) use of aspirin; Z82.49 Family history of ischemic heart disease and other diseases of the circulatory system; Z83.3 Family history of diabetes mellitus; Z79.899 Other long term (current) drug therapy; Z87.891 Personal history of nicotine dependence
CPT/HCPCS: 32408; 36415; 36600; 70470; 70553; 71045; 77012; 80048; 80053; 81003; 81015; 82805; 83880; 84484; 85025; 85610; 85730; 88305; 88333; 88334; 93005; 93010; 96374; 96375; A9579; J0248; J1100; J1650; J1940; J2250; J2270; J3010; J7050; J7120; J8540; Q9967; U0002